=== PATIENT | female | born 1940 | race Caucasian/White ===

== ENCOUNTER 2016-09-23 09:21 | Day surgery (SDC) | payer OTHER ==
[~2016-09-23] VITALS: Ht 165.1 cm; Wt 74.8 kg
[~2016-09-23 09:21] MED LIST: ADVAIR 100/501 DISK IH; B-COMPLEX-VITA1 EACH PO; BETA CAROT10000 UNIT PO; BIOTIN1000 MICRO PO; CALCIUM 500 MG1 EACH PO; CROMOLYN SODIUM10 ML BOTH EYES; FOLIC ACID0.4 MG PO; MOTRIN800 MG PO; NORVASC5 MG PO; PROTONIX40 MG PO; RANITIDINE HCL150 MG PO; RETIN-A45 G1 TP; SELENIUM100 MICROG PO; ST. JOSEPH ASPI81 MG PO; VITAMIN A10000 UNIT PO; VITAMIN C1000 MG PO; VITAMIN D22000 UNIT PO; VOLTAREN 1% GE100 GM TP
[2016-09-23] MEDS ORDERED: ASMANEX HFA13 G1 IH (10:01)
== END 2016-09-23 11:25 | disposition home or self-care (01) ==
LOC: PAIN 09:21 → SDC 10:00 → PAIN 11:25
DX: M46.1 Sacroiliitis, not elsewhere classified (principal); F41.9 Anxiety disorder, unspecified; M47.816 Spondylosis without myelopathy or radiculopathy, lumbar region; M54.5 Low back pain; Z87.891 Personal history of nicotine dependence; J45.909 Unspecified asthma, uncomplicated; E78.4 Other hyperlipidemia; K58.9 Irritable bowel syndrome, unspecified; E73.9 Lactose intolerance, unspecified; Z88.5 Allergy status to narcotic agent; Z88.8 Allergy status to other drugs, medicaments and biological substances
CPT/HCPCS: J1030; J3010; S0020

== ENCOUNTER 2016-11-18 09:25 | Day surgery (SDC) | payer OTHER ==
[~2016-11-18] VITALS: Ht 165.1 cm; Wt 77.1 kg
[~2016-11-18 09:25] MED LIST changes: +ASMANEX HFA13 G1 IH; +ASPIR 8181 M1 PO; -ST. JOSEPH ASPI81 MG PO; +TYLENOL EXTRA500 MG PO
== END 2016-11-18 12:01 | disposition home or self-care (01) ==
LOC: PAIN 09:25 → SDC 10:15 → PAIN 12:01
DX: M25.552 Pain in left hip (principal); M16.0 Bilateral primary osteoarthritis of hip; M46.1 Sacroiliitis, not elsewhere classified; M47.816 Spondylosis without myelopathy or radiculopathy, lumbar region; Z87.891 Personal history of nicotine dependence; Z88.5 Allergy status to narcotic agent; Z88.8 Allergy status to other drugs, medicaments and biological substances
CPT/HCPCS: J1030; J2250; J3010; S0020

== ENCOUNTER 2016-11-30 03:47 | Emergency (ER) | payer OTHER ==
[~2016-11-30] VITALS: Ht 172.7 cm; Wt 77.0 kg
[2016-11-30 04:53] LABS: HEMATOCRIT 37.5 % (36.0-46.0); MCH 32.9 PG (29.0-34.0); MCHC 33.3 G/DL (30.0-36.0); MCV 98.7 FL (83-99); MEAN PLAT.VOLUME 10.2 uM^3 (9.5-12.4); PLATELET COUNT 284 K/uL (156-360); RBC DIS.WIDTH-CV 12.3 % (11.8-14.6); WHITE BLOOD COUNT 7.5 K/uL (4.1-10.2)
[2016-11-30 05:03] LABS: CHLORIDE 106 mEq/L (99-109); POTASSIUM 4.3 mEq/L (3.7-5.4); SODIUM 136 mEq/L (136-147)
[2016-11-30 05:06] LABS: GLUCOSE 115 mg/dL (70-99)
[2016-11-30 05:07] LABS: ANION GAP 9 MEQ/L (2-14)
[2016-11-30 05:08] LABS: TOTAL BILIRUBIN 0.4 mg/dL (0.0-1.0)
[2016-11-30 05:09] LABS: GFR ESTIMATE (CALCULATED) > 59 mL/min/
[2016-11-30 05:10] LABS: ALKALINE PHOSPHATASE 72 IU/L (3-129)
[2016-11-30 05:11] LABS: UREA NITROGEN (BUN) 25 mg/dL (9-23)
[2016-11-30 05:13] LABS: SALICYLATE < 5.0 MG/DL (15-30)
[2016-11-30 05:14] LABS: LIPASE 112 U/L (1.0-51.0); TROP-I INTERPRETATION NEGATIVE; TROPONIN-I < 0.01 ng/mL (0.0-0.30)
[2016-11-30 05:40] LABS: ERTH.SED.RATE 35 MM/HR (0-30)
[2016-11-30 06:06] LABS: ADD MIUA? YES; BILIRUBIN NEGATIVE; BLOOD SMALL; COLOR YELLOW ((YELLOW)); GLUCOSE (STRIP) NEGATIVE; KETONES NEGATIVE; LEUKOCYTES NEGATIVE; NITRITE NEGATIVE; PROTEIN (STRIP) NEGATIVE; SPECIFIC GRAVITY 1.009 (1.000-1.030); UROBILINOGEN 0.2 MG/DL (0.2-1.0)
[2016-11-30 06:14] LABS: BACTERIA NONE SEEN /HPF; EPITHELIAL CELLS RARE /HPF; MUCUS TRACE /LPF; RED BLOOD CELLS 0-5 /HPF (0-5); UCUL ADDED? NO; WHITE BLOOD CELLS 0-5 /HPF (0-5)
[2016-11-30 07:58] VITALS: BP 128/74
== END 2016-11-30 07:59 | disposition home or self-care (01) ==
LOC: EME 03:47
PROVIDERS: Emergency Medicine
DX: R20.2 Paresthesia of skin (principal); R51 Headache; T50.995A Adverse effect of other drugs, medicaments and biological substances, initial encounter; I10 Essential (primary) hypertension; J45.909 Unspecified asthma, uncomplicated; Z87.891 Personal history of nicotine dependence
CPT/HCPCS: 70450; 71020; 80053; 81003; 83690; 84484; 85027; 85651; 93005; 99281; 99284; G0480

== ENCOUNTER 2017-02-25 10:06 | Inpatient (IN) | payer OTHER ==
[~2017-02-25] VITALS: Ht 165.1 cm; Wt 75.0 kg
[2017-02-25 10:51] VITALS: BP 149/65
[2017-02-25 13:43] LABS: EOSINOPHIL (%) 0.7 % (0-5); HEMATOCRIT 38.6 % (36.0-46.0); IMMATURE GRANULOCYTE (%) 0.2 % (0.0-0.7); INSTRUMENT ABS NEUTROPHIL CT 2.4 K/uL; LYMPHOCYTE COUNT 1.2 K/uL (1.0-2.8); MCH 32.5 PG (29.0-34.0); MCHC 32.9 G/DL (30.0-36.0); MCV 98.7 FL (83-99); MEAN PLAT.VOLUME 10.4 uM^3 (9.5-12.4); MONOCYTE COUNT 0.7 K/uL (0-0.8); NEUTROPHIL (%) 56.1 % (45-76); NEUTROPHIL COUNT 2.4 K/uL (1.8-6.4); PLATELET COUNT 245 K/uL (156-360); RBC DIS.WIDTH-SD 43.8 % (39-53); RED BLOOD COUNT 3.91 M/uL (3.80-5.20); WHITE BLOOD COUNT 4.3 K/uL (4.1-10.2)
[2017-02-25 14:06] LABS: ERTH.SED.RATE 51 MM/HR (0-30)
[2017-02-25 16:00] VITALS: BP 134/63
[2017-02-25 19:18] VITALS: BP 123/67
[2017-02-26] VITALS: BP 111/55
[2017-02-26 04:21] VITALS: BP 116/56
[2017-02-26 08:00] VITALS: BP 134/62
== END 2017-02-26 16:10 | disposition home or self-care (01) | DRG 921 ==
LOC: 3EAST 10:06 → ENRESERV 10:11 → 3EAST 10:25
PROVIDERS: Neurological Surgery
PROC: 0CJS8ZZ Inspection of Larynx, Via Natural or Artificial Opening Endoscopic (ICD-10-PCS; principal; 2017-02-25)
DX: M96.89 Other intraoperative and postprocedural complications and disorders of the musculoskeletal system (principal); Y83.8 Other surgical procedures as the cause of abnormal reaction of the patient, or of later complication, without mention of misadventure at the time of the procedure; R13.13 Dysphagia, pharyngeal phase; J02.9 Acute pharyngitis, unspecified; E86.0 Dehydration; R62.7 Adult failure to thrive; Z98.1 Arthrodesis status; Z85.810 Personal history of malignant neoplasm of tongue; Z90.49 Acquired absence of other specified parts of digestive tract
CPT/HCPCS: 70491; 74220; 85025; 85651; 86140; J3480

== ENCOUNTER → 2017-07-02 | Outpatient (CLI) | payer OTHER | END | disposition home or self-care (01) | DX: R13.13 Dysphagia, pharyngeal phase (principal); Z85.810 Personal history of malignant neoplasm of tongue | CPT/HCPCS: 92611 GN; G8996 GN; G8997 GN; G8998 GN ==